=== PATIENT | male | born 1995 | race Caucasian/White ===

== ENCOUNTER → 2017-09-18 | Outpatient (REF) | payer OTHER ==
[2017-09-18 18:20] LABS: FOLATE 7.4 NG/ML; VITAMIN B12 LEVEL 470 PG/ML
[2017-09-18 18:23] LABS: RHEUMATOID FACTOR QUANT < 10.0 IU/ML (<15.0); TOTAL PROTEIN 7.7 GM/DL (6.4-8.2)
[2017-09-18 20:22] LABS: ERYTHROCYTE SEDIMENTATION RATE 1 mm/hr (0-15)
[2017-09-22 14:50] LABS: ALBUMIN % 60.7 % (55.8-66.1); ALPHA-1-GLOBULIN % 3.8 % (2.9-4.9)
[2017-09-22 14:51] LABS: ALBUMIN 4.67 GM/DL (3.29-5.55); ALPHA-1-GLOBULINS 0.29 GM/DL (0.17-0.41); ALPHA-2-GLOBULINS 0.87 GM/DL (0.42-0.99); ALPHA-2-GLOBULINS % 11.3 % (7.1-11.8); BETA-1-GLOBULINS 0.46 GM/DL (0.28-0.60); BETA-2-GLOBULINS 0.35 GM/DL (0.19-0.55); BETA-2-GLOBULINS % 4.6 % (3.2-6.5); GAMMA GLOBULIN % 13.6 % (11.1-18.8); GAMMA GLOBULINS 1.05 GM/DL (0.65-1.58)
[2017-09-23 11:13] LABS: DRVV SCREEN 45.7 SEC
[2017-09-23 11:14] LABS: PTT LUPUS TYPE ANTICOAG SCREEN 1.1 (0-1.2)
[2017-09-26 13:34] LABS: ANTINUCLEAR ANTIBODIES DIRECT Negative (Negative); VITAMIN B1 LEVEL WHOLE BLOOD 104.2 nmol/L (66.5-200.0); VITAMIN B6,PYRIDOXAL PHOSPHATE 5.8 ug/L (5.3-46.7); VITAMIN E(ALPHA TOCOPHEROL) 8.9 mg/L (5.9-19.4); VITAMIN E(GAMMA TOCOPHEROL) 1.9 mg/L (0.7-4.9)
== END ==
LOC: M LABNEURO 12:00
DX: M54.5 Low back pain (principal); G62.9 Polyneuropathy, unspecified